=== PATIENT | male | born 1955 | race Caucasian/White ===

== ENCOUNTER 2017-04-06 08:59 | Emergency (ER) | payer MEDICARE ==
[2017-04-06 09:00] VITALS: BMI 25.8
[2017-04-06 09:08] VITALS: BP 133/87; RESP 20; TEMP 97.1; O2SAT 99
--- NOTE | 2017-04-06 09:53 | ED PDOC ---
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 denies: Nausea, Vomiting, Diarrhea Ear Symptoms: Bilateral: None Pain Scale Rating Of: 10 Additional Complaint(s): Luis Fernando Mondragon is a 61 year old male, with no past medical history, who presents to the emergency department complaining of a productive cough associated with congestion and throat tightness; fever, and headache onset for 1 week. Patient is also complaining of sticky drainage from left eye. He reports chest pain with cough during inspiration. Patient denies any nausea, vomit, diarrhea, chest pain or shortness of breath. No further medical complaints. Past Medical History Reviewed: Historical Data, Nursing Documentation, Vital Signs Vital Signs: Last Vital Signs Temp 97.1 F L 04/06/17 09:08 Pulse 88 04/06/17 10:29 Resp 20 04/06/17 09:08 BP 133/87 04/06/17 09:08 Pulse Ox 99 04/06/17 10:29 - Family History Family History: States: Unknown Family Hx - Social History Current smoker - smoking cessation education provided: No Alcohol: None Drugs: Denies - Home Medications Home Medications: Ambulatory Orders Medication Instructions Recorded Azithromycin [Z-Sandeep] 250 mg PO DAILY #6 tab 04/06/17 Guaifenesin/Pseudoephedrne HCl 1 ter PO Q12H PRN #10 ter 04/06/17 [Mucinex D 600 mg-60 mg] - Allergies Allergies/Adverse Reactions: Allergies Allergy/AdvReac Type Severity Reaction Status Date / Time No Known Allergies Allergy Verified 10/19/12 10:03 Review of Systems ROS Statement: Except As Marked, All Systems Reviewed And Found Negative Constitutional: Positive for: Fever Eyes: Positive for: Other (sticky drainage from left eye) ENT: Positive for: Nose Congestion, Throat Pain (tightness) Cardiovascular: Positive for: Chest Pain (with cough during inspiration) Respiratory: Positive for: Cough (productive). Negative for: Shortness of Breath Gastrointestinal: Negative for: Nausea, Vomiting, Diarrhea Neurological: Positive for: Headache Physical Exam - Reviewed Nursing Documentation Reviewed: Yes Vital Signs Reviewed: Yes - Physical Exam Appears: Positive for: Well, Non-toxic, No Acute Distress Head Exam: Positive for: ATRAUMATIC, NORMAL INSPECTION, NORMOCEPHALIC Skin: Positive for: Normal Color, Warm, Dry Eye Exam: Positive for: EOMI, Normal appearance, PERRL ENT: Positive for: Pharyngeal Erythema Neck: Positive for: Normal, Painless ROM, Supple Cardiovascular/Chest: Positive for: Regular Rate, Rhythm. Negative for: Murmur Respiratory: Positive for: Normal Breath Sounds. Negative for: Respiratory Distress Gastrointestinal/Abdominal: Positive for: Normal Exam, Bowel Sounds, Soft. Negative for: Tenderness, Guarding, Rebound Back: Positive for: Normal Inspection. Negative for: L CVA Tenderness, R CVA Tenderness Extremity: Positive for: Normal ROM. Negative for: Deformity, Swelling Neurologic/Psych: Positive for: Alert, Oriented. Negative for: Motor/Sensory Deficits - Laboratory Results Result Diagrams: 04/06/17 10:43 04/06/17 10:43 - ECG ECG Rhythm: Positive for: Normal QRS (normal axis), Sinus Rhythm, Right Bundle Branch Block Rate: 88 O2 Sat by Pulse Oximetry: 99 (RA) Pulse Ox Interpretation: Normal - Radiology X-Ray: Read By Radiologist X-Ray Interpretation: No Acute Disease - Progress Condition: Re-examined, Improving,but remains with symptoms Medical Decision Making Medical Decision Making: Initial Impression: URI Initial Plan: --EKG --BMP --Troponin I --CBC w/ differential --PTT --PT --Chest two views (PA/LAT) [RAD] --reevaluation 1016 Chest X-Ray FINDINGS: LUNGS: No active pulmonary disease. PLEURA: No significant pleural effusion identified. No pneumothorax apparent. CARDIOVASCULAR: Normal. OSSEOUS STRUCTURES: No significant abnormalities. VISUALIZED UPPER ABDOMEN: Normal. OTHER FINDINGS: None. IMPRESSION: No active disease. Scribe Attestation: Documented by Huang Delcid, acting as a scribe for Varsha Lopez MD Provider Scribe Attestation: All medical record entries made by the Scribe were at my direction and personally dictated by me. I have reviewed the chart and agree that the record accurately reflects my personal performance of the history, physical exam, medical decision making, and the department course for this patient. I have also personally directed, reviewed, and agree with the discharge instructions and disposition. Disposition - Clinical Impression Clinical Impression: Acute bronchitis - Patient ED Disposition Is Patient to be Admitted: No Doctor Will See Patient In The: Office Counseled Patient/Family Regarding: Diagnosis, Need For Followup - Disposition Disposition: Routine/Home Disposition Time: 11:25 Condition: STABLE Prescriptions: Azithromycin [Z-Sandeep] 250 mg PO DAILY #6 tab Guaifenesin/Pseudoephedrne HCl [Mucinex D 600 mg-60 mg] 1 ter PO Q12H PRN #10 ter PRN Reason: cough/congestion Forms: [employer] (Slovenian)
[2017-04-06 10:04] VITALS: PULSE 88
--- NOTE | 2017-04-06 10:17 | RAD ---
HISTORY: chest pain COMPARISON: No prior. TECHNIQUE: Chest PA and lateral FINDINGS: LUNGS: No active pulmonary disease. PLEURA: No significant pleural effusion identified. No pneumothorax apparent. CARDIOVASCULAR: Normal. OSSEOUS STRUCTURES: No significant abnormalities. VISUALIZED UPPER ABDOMEN: Normal. OTHER FINDINGS: None. IMPRESSION: No active disease.
[2017-04-06 10:55] LABS: BASO # 0.1 K/uL (0.0-0.2); BASO % 0.6 % (0.0-2.0); EOS # 0.3 K/uL (0.0-0.7); EOS % 2.4 % (0.0-4.0); HEMATOCRIT 43.8 % (35.0-51.0); LYMPH # 1.9 K/uL (1.0-4.3); LYMPH % 14.9 % (20.0-40.0); MEAN CELL VOLUME 89.7 fl (80.0-94.0); MEAN CORPUSCULAR HEMOGLOBIN 30.3 pg (27.0-31.0); MEAN CORPUSCULAR HGB CONC 33.8 g/dL (33.0-37.0); MEAN PLATELET VOLUME 8.4 fl (7.2-11.7); MONO # 1.3 K/uL (0.0-0.8); MONO % 9.8 % (0.0-10.0); NEUT # 9.4 K/uL (1.8-7.0); NEUT % 72.3 % (50.0-75.0); NRBC % 0.1 % (0.0-0.0); RED CELL DISTRIBUTION WIDTH 13.2 % (11.5-14.5)
[2017-04-06 11:00] LABS: BLOOD UREA NITROGEN 15 mg/dl (9-20); CARBON DIOXIDE 26 mmol/L (22-30); CHLORIDE 105 mmol/L (98-107); GFR AFRICAN-AMERICAN > 60; GLUCOSE,RANDOM 109 mg/dL (75-110); POTASSIUM 4.3 MMOL/L (3.6-5.0); SODIUM 142 mmol/l (132-148)
[2017-04-06 11:08] LABS: PARTIAL THROMBOPLASTIN TIME 35.7 Seconds (25.6-37.1)
--- NOTE | 2017-04-07 10:41 | CARD ---
APPROVED REPORT EKG Measurement Heart [id number] <Conclusion> Normal sinus rhythm Incomplete right bundle branch block Borderline ECG
== END 2017-04-06 12:28 | disposition home or self-care (01) ==
LOC: H.ER 08:59
DX: R51 Headache (principal); J20.9 Acute bronchitis, unspecified